=== PATIENT | female | born 1975 | race Two or more races ===

== ENCOUNTER → 2025-02-07 | Outpatient (CLI) | payer MEDICAID, SELFPAY ==
--- NOTE | 2025-02-07 09:00 | XR_ITS ---
Examination: Breast ultrasound, unilateral, right Date and time of exam: February 07, 2025 0922 hrs. Indications: Mammogram 08/05/2024 4 mm nodule retroareolar region right breast Technique: Real-time schneider scale ultrasonographic imaging performed right breast including all 4 quadrants as well as nipple retroareolar and axillary region. Findings: Benign cysts including retroareolar 7 x 6 mm Retroareolar nodule circumscribed 3 x 3 mm Impression: BI-RADS Category 2: Benign findings
--- NOTE | 2025-02-07 09:30 | XR_ITS ---
Examination: Diagnostic digital mammography, unilateral, right Computer aided detection 3-D breast Tomosynthesis, unilateral Date and time of exam: 02/07/2025, 9:37 AM Comparisons: July 2022 through April 2024 Indications: Technique: Nonmagnified MLO, CC views of the right breast have been obtained, reconstructed from 3-D Tomosynthesis images. R2 computer aided detection program utilized for evaluation of suspicious masses and/or abnormal calcifications. 3-D Tomosynthesis images obtained. Technologist: Findings: There are scattered areas of fibroglandular density. 7 mm oval circumscribed mass persists on spot compression views. Finding corresponds to a benign simple cyst seen on today's ultrasound exam. Otherwise no evidence of abnormal masses or suspicious calcifications. Impression: Benign findings of the right breast. BI-RADS category 2: Benign findings Recommend 1 year follow-up mammogram Please note patient is overdue for left screening mammogram. Immediate left breast screening mammogram is recommended.
== END | disposition home or self-care (01) ==
LOC: CDIM 08:52
PROVIDERS: PCP Advanced Practice Midwife; Referring Provider Advanced Practice Midwife; Visit Provider Advanced Practice Midwife
DX: N63.10 Unspecified lump in the right breast, unspecified quadrant (principal); R92.321 Mammographic fibroglandular density, right breast
CPT/HCPCS: 76641; 77061; 77065; G0279